=== PATIENT | female | born 1950 | race Caucasian/White ===

== ENCOUNTER 2024-11-22 02:24 | Day surgery (SDC) | payer MEDICARE, OTHER ==
[2024-11-22] MEDS ORDERED: Lidocaine HCl 4% Cream 5 GM ONE (13:55)
[2024-11-22] MEDS ORDERED: Lidocaine HCl 4% Topical Soln 5 MLUDC ONE (13:55)
== END 2024-11-22 23:00 | disposition home or self-care (01) ==
LOC: WOUND 02:24
DX: L97.812 Non-pressure chronic ulcer of other part of right lower leg with fat layer exposed (principal); L97.822 Non-pressure chronic ulcer of other part of left lower leg with fat layer exposed; I10 Essential (primary) hypertension; I73.9 Peripheral vascular disease, unspecified; R73.03 Prediabetes; Z72.0 Tobacco use; Z88.0 Allergy status to penicillin; L97.529 Non-pressure chronic ulcer of other part of left foot with unspecified severity; S81.801A Unspecified open wound, right lower leg, initial encounter; M79.89 Other specified soft tissue disorders; M15.9 Polyosteoarthritis, unspecified; R93.89 Abnormal findings on diagnostic imaging of other specified body structures
CPT/HCPCS: 73620; 93922; A9270; G0463

== ENCOUNTER 2024-11-27 03:42 | Day surgery (SDC) | payer MEDICARE, OTHER ==
[2024-11-27] MEDS ORDERED: Lidocaine HCl 4% Topical Soln 5 MLUDC ONE (15:05)
== END 2024-11-27 23:08 | disposition home or self-care (01) ==
LOC: WOUND 03:42
DX: L97.812 Non-pressure chronic ulcer of other part of right lower leg with fat layer exposed (principal); L97.822 Non-pressure chronic ulcer of other part of left lower leg with fat layer exposed; I87.313 Chronic venous hypertension (idiopathic) with ulcer of bilateral lower extremity; I87.2 Venous insufficiency (chronic) (peripheral); I73.9 Peripheral vascular disease, unspecified; R73.03 Prediabetes; I10 Essential (primary) hypertension; Z72.0 Tobacco use; Z88.0 Allergy status to penicillin
CPT/HCPCS: A9270

== ENCOUNTER 2024-12-04 03:58 | Day surgery (SDC) | payer MEDICARE, OTHER | END 2024-12-04 23:03 | disposition home or self-care (01) | LOC: WOUND 03:58 | DX: I87.311 Chronic venous hypertension (idiopathic) with ulcer of right lower extremity (principal); L97.812 Non-pressure chronic ulcer of other part of right lower leg with fat layer exposed; I87.2 Venous insufficiency (chronic) (peripheral); I73.9 Peripheral vascular disease, unspecified; I10 Essential (primary) hypertension; R73.03 Prediabetes; Z72.0 Tobacco use | CPT/HCPCS: G0463 ==

== ENCOUNTER 2024-12-18 02:41 | Day surgery (SDC) | payer MEDICARE, OTHER ==
[2024-12-18] MEDS ORDERED: Triamcinolone Acet 0.1% Cream 15 gm ONE (15:49)
== END 2024-12-18 23:00 | disposition home or self-care (01) ==
LOC: WOUND 02:41
DX: I87.313 Chronic venous hypertension (idiopathic) with ulcer of bilateral lower extremity (principal); L97.812 Non-pressure chronic ulcer of other part of right lower leg with fat layer exposed; I87.2 Venous insufficiency (chronic) (peripheral); I73.9 Peripheral vascular disease, unspecified; I10 Essential (primary) hypertension; Z72.0 Tobacco use
CPT/HCPCS: A9270; G0463

== ENCOUNTER → 2024-12-25 | Day surgery (SDC) | payer MEDICARE, OTHER ==
[~2024-12-25] MED LIST: Triamcinolone Acet 0.1% Cream 15 gm ONE
== END ==
LOC: WOUND 02:25
DX: L97.811 Non-pressure chronic ulcer of other part of right lower leg limited to breakdown of skin (principal); I87.2 Venous insufficiency (chronic) (peripheral); L89.890 Pressure ulcer of other site, unstageable; L89.899 Pressure ulcer of other site, unspecified stage; I73.9 Peripheral vascular disease, unspecified; R73.03 Prediabetes; I10 Essential (primary) hypertension; Z72.0 Tobacco use
CPT/HCPCS: A9270; G0463

== ENCOUNTER 2025-01-01 04:46 | Day surgery (SDC) | payer MEDICARE, OTHER ==
[2025-01-01] MEDS ORDERED: Triamcinolone Acet 0.1% Cream 15 gm ONE (15:53)
== END 2025-01-01 22:40 | disposition home or self-care (01) ==
LOC: WOUND 04:46
DX: I87.313 Chronic venous hypertension (idiopathic) with ulcer of bilateral lower extremity (principal); L97.812 Non-pressure chronic ulcer of other part of right lower leg with fat layer exposed; L97.512 Non-pressure chronic ulcer of other part of right foot with fat layer exposed; I87.2 Venous insufficiency (chronic) (peripheral); I73.9 Peripheral vascular disease, unspecified; R73.03 Prediabetes; I10 Essential (primary) hypertension; Z72.0 Tobacco use
CPT/HCPCS: A9270; G0463

== ENCOUNTER 2025-01-08 08:00 | Day surgery (SDC) | payer MEDICARE, OTHER ==
[2025-01-08] MEDS ORDERED: Triamcinolone Acet 0.1% Cream 15 gm ONE (15:22)
== END 2025-01-08 23:00 ==
LOC: WOUND 08:00
DX: I87.311 Chronic venous hypertension (idiopathic) with ulcer of right lower extremity (principal); L97.812 Non-pressure chronic ulcer of other part of right lower leg with fat layer exposed; L97.512 Non-pressure chronic ulcer of other part of right foot with fat layer exposed; I87.2 Venous insufficiency (chronic) (peripheral); I73.9 Peripheral vascular disease, unspecified; I10 Essential (primary) hypertension; R73.03 Prediabetes; Z72.0 Tobacco use
CPT/HCPCS: A9270; G0463

== ENCOUNTER → 2025-01-15 | Day surgery (SDC) | payer MEDICARE, OTHER | LOC: WOUND 03:53 | DX: I87.313 Chronic venous hypertension (idiopathic) with ulcer of bilateral lower extremity (principal); L97.812 Non-pressure chronic ulcer of other part of right lower leg with fat layer exposed; L97.222 Non-pressure chronic ulcer of left calf with fat layer exposed; I73.9 Peripheral vascular disease, unspecified; I10 Essential (primary) hypertension; R73.03 Prediabetes; Z72.0 Tobacco use; Z88.0 Allergy status to penicillin | CPT/HCPCS: A9270; G0463 ==

== ENCOUNTER 2025-01-29 02:35 | Day surgery (SDC) | payer MEDICARE, OTHER ==
[2025-01-29] MEDS ORDERED: Triamcinolone Acet 0.1% Cream 15 gm ONE (15:37)
== END 2025-01-29 23:24 | disposition home or self-care (01) ==
LOC: WOUND 02:35
DX: I87.313 Chronic venous hypertension (idiopathic) with ulcer of bilateral lower extremity (principal); L97.812 Non-pressure chronic ulcer of other part of right lower leg with fat layer exposed; L97.222 Non-pressure chronic ulcer of left calf with fat layer exposed; I87.2 Venous insufficiency (chronic) (peripheral); I73.9 Peripheral vascular disease, unspecified; I10 Essential (primary) hypertension; R73.03 Prediabetes; Z72.0 Tobacco use
CPT/HCPCS: A9270; G0463

== ENCOUNTER 2025-02-05 01:16 | Day surgery (SDC) | payer MEDICARE, OTHER ==
[2025-02-05] MEDS ORDERED: Triamcinolone Acet 0.1% Cream 15 gm ONE (15:39)
== END 2025-02-05 23:00 ==
LOC: WOUND 01:16
DX: I87.313 Chronic venous hypertension (idiopathic) with ulcer of bilateral lower extremity (principal); L97.812 Non-pressure chronic ulcer of other part of right lower leg with fat layer exposed; L97.811 Non-pressure chronic ulcer of other part of right lower leg limited to breakdown of skin; L97.222 Non-pressure chronic ulcer of left calf with fat layer exposed; I87.2 Venous insufficiency (chronic) (peripheral); I73.9 Peripheral vascular disease, unspecified; I10 Essential (primary) hypertension; R73.03 Prediabetes; Z72.0 Tobacco use
CPT/HCPCS: A9270; G0463

== ENCOUNTER 2025-03-26 04:39 | Day surgery (SDC) | payer MEDICARE, OTHER | END 2025-03-26 22:00 | disposition home or self-care (01) | LOC: WOUND 04:39 | DX: R60.9 Edema, unspecified (principal); I87.2 Venous insufficiency (chronic) (peripheral); I73.9 Peripheral vascular disease, unspecified; I10 Essential (primary) hypertension; R73.03 Prediabetes; Z87.828 Personal history of other (healed) physical injury and trauma; Z72.0 Tobacco use | CPT/HCPCS: G0463 ==